=== PATIENT | female | born 1945 | race Caucasian/White ===

== ENCOUNTER 2020-12-23 06:12 | Day surgery (SDC) | payer MEDICARE ==
[~2020-12-23] VITALS: Ht 167.6 cm; Wt 80.5 kg
[~2020-12-23 06:12] MED LIST: CALMOSEPTINE OI71 GM TOPICAL; CATAPRES0.1 MG PO; FLORAJEN3 CAPS460 MG PO; GLUCOPHAGE500 MG PO; HYDROCODON-ACE1 EAC7 PO; KLOR-CON 1010 MEQ PO; LISINOPRIL40 MG PO; MACROBID100 MG PO; MILK OF MAGNESI30 ML PO; MIRALAX17 GM PO; PROTONIX40 MG PO; TENORMIN25 MG; THERMOTABS 1 GM1 GM PO; VITAMIN D31250 MCG PO; ZOFRAN4 MG PO; ZOLOFT25 MG PO; ZYLOPRIM300 MG PO; ZYVOX600 MG PO
[2020-12-23 07:03] LABS: BASOPHILS 0.6 % (0-2); EOSINOPHILS 2.2 % (0-7); HEMATOCRIT 36.9 % (36.0-48.0); HEMOGLOBIN 11.5 g/dL (12-16); IMMATURE GRANULOCYTES 0.5 % (0-5); LYMPHOCYTES 27.6 % (15-50); MCH 27.6 pg (26.0-34.0); MCHC 31.2 g/dL (31.0-37.0); MCV 88.5 fL (80.0-100.0); MEAN PLATELET VOLUME 10.7 fL (7.4-10.4); MONOCYTES 6.9 % (2-11); NEUTROPHIL ABS# 5.18 10x3/uL (1.56-6.13); NEUTROPHILS 62.2 % (40-80); RBC 4.17 10x6/uL (4.00-5.40); RDW 16.9 % (11.5-14.5); WBC 8.3 10x3/uL (4.8-10.8)
[2020-12-23 07:09] LABS: PLATELET COUNT 369 10x3/uL (130-400)
[2020-12-23 07:17] VITALS: Ht 167.6 cm; Wt 80.5 kg
[2020-12-23 07:28] LABS: CALCIUM 10.2 mg/dL (8.5-10.1); CARBON DIOXIDE 24.5 mmol/L (21.0-32.0); CREATININE - SERUM 0.6 mg/dL (0.6-1.3); GLUCOSE 134 mg/dL (74-106); UREA NITROGEN 26 mg/dL (7-18); eGFR NON AFRICAN AMERICAN > 90 mL/min (90-120)
[2020-12-23 07:32] LABS: CALC OSMOLALITY 284 mosm/kg (275-300); CHLORIDE - SERUM 103 mmol/L (98-107); SODIUM 139 mmol/L (136-145)
--- NOTE | 2020-12-23 09:28 | NUR ---
0910 DRESSED. UP TO PT.'S OWN WHEELCHAIR BY JOSSELINE Wright & JOCELYNE Wright PROVIDED WITH D/C INFORMATION INCLUDING: MED REC, RTC APPT. & [facility] POST ENDOSCOPY D/C INSTRUCTIONS. PT & DAUGHTER VOICED UNDERSTANDING. RELEASED FROM OPS VIA WHEELCHAIR WITH DAUGHTER JACQUIE TO WAITING FOR [facility] TRANSPORT VAN. Khris MANJARREZ R.N. 0915 REPORT CALLED TO THU AGUILAR R.N./[facility]. Khris MANJARREZ R.N.
--- NOTE | 2020-12-23 13:33 | OP ---
PATIENT NAME: FREDERICK RODRIGUEZ MEDICAL RECORD: [id number] :45 LOCATION:D.OPS ADMISSION DATE: SURGEON: LEÓN TAN MD DATE OF OPERATION: 12/23/2020 PREOPERATIVE DIAGNOSES: 1. Rectovaginal fistula. 2. Diabetes mellitus. 3. Hypertension. POSTOPERATIVE DIAGNOSES: 1. Rectovaginal fistula. 2. Diabetes mellitus. 3. Hypertension. PROCEDURE: Flexible sigmoidoscopy. SURGEON: León Tna MD REPORT OF PROCEDURE: Olympus endoscope was advanced through the patient's anus and into the rectum. We progressed up to about 14 cm from the anal verge and encountered the staple line. There were no signs of any masses or lesions that were found throughout the distal rectum. The rectovaginal fistula was still present and was approximately 0.5 cm in greatest diameter. There were no signs of any masses or lesions associated with this and there was no sign of any ulceration. There was just a clean opening that was present between the posterior vaginal wall and the anterior rectal mucosa. Besides this there was no other abnormality seen and this defect was about a centimeter in from the anal verge. At this point, the scope was removed. COMPLICATIONS: None. CONDITION: Stable. ANESTHESIA: TIVA. BLOOD LOSS: Minimal. TRANSINT:[id number] Voice Confirmation ID: [id number] DOCUMENT ID: [id number] LEÓN TAN MD at 1333 CC: [id number] DICTATION DATE: 12/23/20 08 [employer]MENT: 12/23/20 1032 [facility] 12/23/[address] [id number]
== END 2020-12-23 09:10 | disposition home or self-care (01) ==
LOC: D.OPS 06:12
PROVIDERS: Anesthesiology; ATTEND Surgery
DX: N82.3 Fistula of vagina to large intestine (principal); E11.9 Type 2 diabetes mellitus without complications; I10 Essential (primary) hypertension